=== PATIENT | female | born 1955 | race Caucasian/White ===

== ENCOUNTER 2016-07-31 08:46 | Emergency (ER) | payer MEDICAID ==
[~2016-07-31] VITALS: Ht 154.9 cm; Wt 44.9 kg
[~2016-07-31 08:46] MED LIST: ASPI81TA2 PO; ESTR0.623 PO; HYDR12.55 PO; HYDR25TA4 PO; LISI-600 PO; TYLENOL
[2016-07-31 08:50] VITALS: BP 140/86; PULSE 82; RESP 18; TEMP 97.1; O2SAT 100
[2016-07-31 09:35] VITALS: BP 140/86; PULSE 82; RESP 18; TEMP 97.1; O2SAT 100
== END 2016-07-31 09:35 | disposition home or self-care (01) ==
LOC: SED 08:46
DX: M75.32 Calcific tendinitis of left shoulder (principal); I10 Essential (primary) hypertension
CPT/HCPCS: 73030; 99284

== ENCOUNTER 2016-10-12 17:58 | Emergency (ER) | payer MEDICAID ==
[~2016-10-12] VITALS: Ht 154.9 cm; Wt 45.4 kg
[2016-10-12 17:58] VITALS: BP_SYST 129
[~2016-10-12 17:58] MED LIST changes: -HYDR25TA4 PO
--- NOTE | 2016-10-12 17:58 | NUR ---
Patient triaged and placed in waiting room. VSS and patient appears in no acute distress at this time. Accompanied by SELF, awaiting available bed, and MD notified of need for MSE.
--- NOTE | 2016-10-12 19:10 | NUR ---
Patient to ER chair 1 for evaluation.
--- NOTE | 2016-10-12 19:10 | NUR ---
Pt ambulatory, A/O X 4, c/o dry cough with chest congestion and nasal congestion with intermittent scratchy sore throat. Pt stated she has "sticky mucus" stuck in throat. Pt denied alleviating factors. Denied aggravating factors. Pt afebrile, no chills, denied headache, chest pain, dizziness, nausea, vomiting. Pt with no other remarkable symptoms. Pt with normal resp effort, no short of breath, lungs clear to auscultate.
--- NOTE | 2016-10-12 19:22 | NUR ---
ER JAMAL Lozoya at bedside examining patient.
[2016-10-12 19:47] VITALS: BP_SYST 125
--- NOTE | 2016-10-12 19:47 | NUR ---
Patient given written and verbal discharge instructions and verbalizes understanding. ER RECREATIONAL THERAPIST LETHA discussed with patient the results and treatment provided. Patient in stable condition. ID arm band removed. Rx of Tessalon Perles, Zyrtec, azithromycin and prednisone given. Patient educated on pain management and to follow up with PMD. Pain Scale 0/10. Opportunity for questions provided and answered.
== END 2016-10-12 19:47 | disposition home or self-care (01) ==
LOC: SED 17:58
DX: J20.9 Acute bronchitis, unspecified (principal); I10 Essential (primary) hypertension; Z90.49 Acquired absence of other specified parts of digestive tract
CPT/HCPCS: 99283

== ENCOUNTER 2017-01-12 19:40 | Emergency (ER) | payer MEDICAID ==
[~2017-01-12] VITALS: Ht 154.9 cm; Wt 45.4 kg
[2017-01-12 19:45] VITALS: BP_SYST 155
[2017-01-12 20:14] LABS: BILIRUBIN,URINE NEGATIVE (NEGATIVE); BLOOD, URINE 1+ (NEGATIVE); CLARITY/URINE SL HAZY (CLEAR); COLOR,URINE YELLOW (YELLOW); GLUCOSE,URINE NEGATIVE (NEGATIVE); KETONES,URINE NEGATIVE (NEGATIVE); LEUKOCYTE ESTERASE ,URINE NEGATIVE (NEGATIVE); NITRITE, URINE NEGATIVE (NEGATIVE); PH,URINE 7.5 (5.0-8.0); PROTEIN URINE NEGATIVE (NEGATIVE); UROBILINOGEN,URINE 0.2 (0.2-1.0)
[2017-01-12 20:29] LABS: BACTERIA,URINE FEW /HPF (None Seen); MUCUS,URINE 1+ /LPF (None Seen); WBC,URINE 0-3 /HPF (0-3)
[2017-01-12 20:42] VITALS: BP_SYST 155
== END 2017-01-12 20:42 | disposition home or self-care (01) ==
LOC: SED 19:40
DX: N39.0 Urinary tract infection, site not specified (principal); I10 Essential (primary) hypertension; Z79.84 Long term (current) use of oral hypoglycemic drugs; Z79.899 Other long term (current) drug therapy
CPT/HCPCS: 81000-TC; 99283; J7030

== ENCOUNTER 2017-01-12 22:49 | Emergency (ER) | payer MEDICAID ==
[~2017-01-12] VITALS: Ht 154.9 cm; Wt 45.4 kg
[2017-01-12 23:00] VITALS: BP_SYST 135
--- NOTE | 2017-01-12 23:10 | NUR ---
Patient to ER bed 6 to gown for evaluation. Side rails up. Report given to RICHARD PORTER.
--- NOTE | 2017-01-12 23:20 | NUR ---
Pt states after her first visit to the ER a few hours ago for UTI. Pt states that she was more nauseous and vomitted once. Pt denies any pain at this time. Will continue to monitor. No other injuries or complaints mentioned/noted. No distress noted.
[2017-01-12] MEDS ORDERED: cefTRIAXone 1 GM IVPB PREMIX 50 ML IV ONE (23:30)
[2017-01-12] MEDS ORDERED: ONDANSETRON HCL 4 MG/2 ML VIAL IVP ONE (23:30)
[2017-01-12] MEDS ORDERED: NACL 0.9% 1,000 ML IV ONE (23:30)
--- NOTE | 2017-01-12 23:30 | NUR ---
ER Dr. Jaquez at bedside examining patient.
--- NOTE | 2017-01-13 00:55 | NUR ---
Pt refused abx. Dr. Jaquez made aware.
--- NOTE | 2017-01-13 01:07 | NUR ---
Patient reports pain 0/10. No adverse reactions noted. Will continue to monitor.
[2017-01-13 01:13] VITALS: BP_SYST 135
--- NOTE | 2017-01-13 01:13 | NUR ---
Patient given written and verbal discharge instructions and verbalizes understanding. ER MD discussed with patient the results and treatment provided. Patient in stable condition. ID arm band removed. Patient educated on pain management and to follow up with PMD. Pain Scale 0/10. Opportunity for questions provided and answered.
== END 2017-01-13 01:13 | disposition home or self-care (01) ==
LOC: SED 22:49
DX: R11.2 Nausea with vomiting, unspecified (principal); R53.1 Weakness; I10 Essential (primary) hypertension; Z79.82 Long term (current) use of aspirin; Z79.899 Other long term (current) drug therapy
CPT/HCPCS: 96360; 96374; 99284; J0696; J2405; J7030; 96361

== ENCOUNTER 2017-01-16 16:13 | Emergency (ER) | payer MEDICAID ==
[~2017-01-16] VITALS: Ht 154.9 cm; Wt 45.4 kg
[~2017-01-16 16:13] MED LIST changes: -ESTR0.623 PO
[2017-01-16 16:26] VITALS: BP_SYST 128
[2017-01-16 21:45] LABS: BILIRUBIN,URINE NEGATIVE (NEGATIVE); BLOOD, URINE 2+ (NEGATIVE); CLARITY/URINE CLEAR (CLEAR); COLOR,URINE YELLOW (YELLOW); GLUCOSE,URINE NEGATIVE (NEGATIVE); KETONES,URINE 3+ (NEGATIVE); LEUKOCYTE ESTERASE ,URINE NEGATIVE (NEGATIVE); NITRITE, URINE NEGATIVE (NEGATIVE); PH,URINE 5.5 (5.0-8.0); PROTEIN URINE NEGATIVE (NEGATIVE); UROBILINOGEN,URINE 0.2 (0.2-1.0)
[2017-01-16 21:53] LABS: BASOPHILS % (AUTO) 0.2 % (0.0-2.0); HEMOGLOBIN 13.8 g/dL (12.0-16.0); LYMPHOCYTES # (AUTO) 0.8 K/uL (1.0-5.5); LYMPHOCYTES % (AUTO) 6.7 % (20.5-51.5); MEAN CORPUSCULAR HEMOGLOBIN 30 pg (27-31); MEAN CORPUSCULAR HGB CONC 35 % (32-36); MEAN CORPUSCULAR VOLUME 87 fL (79.0-98.0); MONOCYTES # (AUTO) 0.3 K/uL (0.0-1.0); MONOCYTES % (AUTO) 2.1 % (1.7-9.3); NEUTROPHILS # (AUTO) 10.9 K/uL (1.8-7.7); PLATELET COUNT (AUTO) 251 K/uL (130-430); RED CELL DISTRIBUTION WIDTH 11.8 % (9.0-15.0)
[2017-01-16 22:00] LABS: ANION GAP 12 (5-15); CALCIUM 9.5 mg/dL (8.4-11.0); CHLORIDE 102 mmol/L (98-107); CREATININE 0.79 mg/dL (0.55-1.30); GLUCOSE 115 mg/dL (70-99); POTASSIUM 3.2 mmol/L (3.5-5.1); SODIUM SERUM 138 mmol/L (136-145); UREA NITROGEN, BLOOD 13 mg/dL (8-21)
[2017-01-16 22:09] LABS: ALANINE AMINOTRANSFERASE 22 U/L (12-78); ALBUMIN 4.3 g/dL (3.4-4.8); ASPARTATE AMINOTRANSFERASE 17 U/L (10-37); TOTAL BILIRUBIN 0.6 mg/dL (0.0-1.0)
[2017-01-16 22:12] LABS: BACTERIA,URINE FEW /HPF (None Seen); MUCUS,URINE None Seen /LPF (None Seen); RBC,URINE 0-3 /HPF (0-3); WBC,URINE NONE SEEN /HPF (0-3)
[2017-01-16 22:13] LABS: GFR AFRICAN AMERICAN 96 mL/min (>90)
[2017-01-16] MEDS ORDERED: POTASSIUM CHLORIDE 10 MEQ TAB.PRT.SR PO ONE (22:30)
[2017-01-16 23:32] VITALS: BP_SYST 132
== END 2017-01-16 23:32 | disposition home or self-care (01) ==
LOC: SED 16:13
DX: H81.10 Benign paroxysmal vertigo, unspecified ear (principal); I10 Essential (primary) hypertension; E54 Ascorbic acid deficiency
CPT/HCPCS: 36415; 80053; 81000-TC; 84484; 85025; 93005; 99285

== ENCOUNTER 2017-02-13 16:41 | Emergency (ER) | payer MEDICAID ==
[~2017-02-13] VITALS: Ht 154.9 cm; Wt 45.4 kg
[2017-02-13 16:51] VITALS: BP_SYST 131
--- NOTE | 2017-02-13 17:05 | NUR ---
Pt placed to ER bed 02, to gown and cardiac monitor technician. Pt c/o dizziness off and on since 01/12/17 and states that this is her 3rd visit to ER. Pt states that she has been taking meclizine for Vertigo, but doesn't think it's working. Denies c/o N/V.
--- NOTE | 2017-02-13 17:20 | NUR ---
Dr. Lozoya at bedside to assess pt.
--- NOTE | 2017-02-13 17:25 | NUR ---
# 20 gauge angiocath placed to RAC. Use of asceptic technique. Opsite placed over site. Blood return noted. Blood for lab drawn from site. Flushed with 10 cc of normal saline. No evidence of infiltration noted. Patient tolerated well.
[2017-02-13] MEDS ORDERED: LORazepam 2 MG/ML VIAL IVP ONE (17:30)
[2017-02-13] MEDS ORDERED: ONDANSETRON HCL 4 MG/2 ML VIAL IVP ONE (17:30)
[2017-02-13] MEDS ORDERED: NACL 0.9% 1,000 ML IV ONE (17:30)
[2017-02-13] MEDS ORDERED: LORazepam 2 MG/ML VIAL (FOR ER USE) IVP ONE (17:45)
[2017-02-13 17:51] LABS: BASOPHILS % (AUTO) 0.5 % (0.0-2.0); EOSINOPHILS # (AUTO) 0.1 K/uL (0.0-0.4); EOSINOPHILS % (AUTO) 1.2 % (0.0-4.0); HEMATOCRIT 37.9 % (36-48); HEMOGLOBIN 12.9 g/dL (12.0-16.0); LYMPHOCYTES # (AUTO) 1.2 K/uL (1.0-5.5); LYMPHOCYTES % (AUTO) 20.7 % (20.5-51.5); MEAN CORPUSCULAR HEMOGLOBIN 30 pg (27-31); MEAN CORPUSCULAR HGB CONC 34 % (32-36); MEAN CORPUSCULAR VOLUME 89 fL (79.0-98.0); MONOCYTES # (AUTO) 0.4 K/uL (0.0-1.0); MONOCYTES % (AUTO) 7.5 % (1.7-9.3); NEUTROPHILS % (AUTO) 70.1 % (40.0-70.0); PLATELET COUNT (AUTO) 246 K/uL (130-430); RED BLOOD CELL COUNT(AUTO) 4.27 MIL/uL (4.2-6.2); RED CELL DISTRIBUTION WIDTH 11.6 % (9.0-15.0); WHITE BLOOD COUNT (AUTO) 5.7 K/uL (4.8-10.8)
[2017-02-13 18:05] LABS: CALCIUM 9.4 mg/dL (8.4-11.0); CREATININE 0.78 mg/dL (0.55-1.30); POTASSIUM 3.1 mmol/L (3.5-5.1)
[2017-02-13 18:17] LABS: THYROID STIMULATING HORMONE 1.21 uIu/mL (0.34-4.82); TOTAL BILIRUBIN 0.4 mg/dL (0.0-1.0); TOTAL PROTEIN, SERUM 7.5 g/dL (6.4-8.3)
[2017-02-13] MEDS ORDERED: POTASSIUM CHLORIDE 20 MEQ/PKT PACKET PO ONE (18:30)
--- NOTE | 2017-02-13 18:45 | NUR ---
Pt denies c/o pain or discomfort and no need verbalized at this time.
--- NOTE | 2017-02-13 19:05 | NUR ---
Pt report given to RICHARD Maddox.
[2017-02-13 21:30] VITALS: BP_SYST 109
== END 2017-02-13 21:30 | disposition home or self-care (01) ==
LOC: SED 16:41
DX: E86.0 Dehydration (principal); R53.1 Weakness; R42 Dizziness and giddiness; I10 Essential (primary) hypertension; Z79.82 Long term (current) use of aspirin; Z79.899 Other long term (current) drug therapy
CPT/HCPCS: 36415; 80053; 84443; 85025; 93005; 96361; 96374; 96375; 99285; J2060; J2405; J7030

== ENCOUNTER 2018-02-04 11:15 | Emergency (ER) | payer MEDICAID ==
[~2018-02-04] VITALS: Ht 154.9 cm; Wt 43.1 kg
[~2018-02-04 11:15] MED LIST changes: +ASPI-1155 PO; -ASPI81TA2 PO
[2018-02-04 11:22] VITALS: BP_SYST 112
--- NOTE | 2018-02-04 11:22 | NUR ---
Patient to ER bed 3 to gown for evaluation. Side rails up.
--- NOTE | 2018-02-04 11:25 | NUR ---
Pt presents to ER c/o skin rash that has exacerbated and spread throughout her body. Pt states that rash began approx three months ago and has worsened over time. Pt states that she has seen her PMD as well as a [employer] for the symptoms. Pt denies any pain, denies chest pain or sob, denies nausea or vomiting. Pt in no acute respiratory distress, speaking full sentences, AOX4, ambulatory, brought in by .
--- NOTE | 2018-02-04 11:32 | NUR ---
ER Dr. Carty at bedside examining patient.
[2018-02-04] MEDS ORDERED: NS 500 ML IV ONE (11:45)
[2018-02-04] MEDS ORDERED: methylPREDNISolone SOD SUCC/PF 62.5 MG/ML VIAL IVP ONE (11:45)
[2018-02-04] MEDS ORDERED: DIPHENHYDRAMINE INJ 50 MG/ML VIAL IVP ONE (11:45)
[2018-02-04] MEDS ORDERED: ALBUTEROL SULFATE 0.083% 2.5 MG/3 ML VIAL.NEB IH ONE (11:45)
[2018-02-04] MEDS ORDERED: IPRATROPIUM BROM 0.5 MG/2.5 ML VIAL.NEB (ATROVENT) IH ONE (11:45)
--- NOTE | 2018-02-04 12:04 | NUR ---
Respiratory at bedside.
[2018-02-04 12:45] VITALS: BP_SYST 114
--- NOTE | 2018-02-04 12:45 | NUR ---
Patient given written and verbal discharge instructions and verbalizes understanding. ER MD discussed with patient the results and treatment provided. Patient in stable condition. ID arm band removed. IV catheter removed intact and dressing applied, no active bleeding. Rx of Atarax, Tramcinolone Acetonide, Prednisone given. Patient educated on pain management and to follow up with PMD. Pain Scale 0. Opportunity for questions provided and answered. Medication side effect fact sheet provided.
== END 2018-02-04 12:45 | disposition home or self-care (01) ==
LOC: SED 11:15
DX: L20.9 Atopic dermatitis, unspecified (principal); I10 Essential (primary) hypertension; Z90.89 Acquired absence of other organs; Z90.710 Acquired absence of both cervix and uterus; Z79.82 Long term (current) use of aspirin; Z79.899 Other long term (current) drug therapy
CPT/HCPCS: 94640; 96374; 96375; 99284; J1200; J2930; J7030; J7613

== ENCOUNTER 2020-08-31 02:06 | Inpatient (IN) | payer MEDICAID, SELFPAY ==
[~2020-08-31] VITALS: Ht 154.9 cm; Wt 43.5 kg
[2020-08-31 02:50] VITALS: BP_SYST 150
--- NOTE | 2020-08-31 02:50 | NUR ---
PATIENT AMBULATORY TO BED 6 FOR EVALUATION
--- NOTE | 2020-08-31 02:51 | NUR ---
ER at bedside examining patient.
[2020-08-31 03:09] LABS: BILIRUBIN,URINE NEGATIVE (NEGATIVE); CLARITY/URINE CLEAR (CLEAR); COLOR,URINE YELLOW (YELLOW); GLUCOSE,URINE NEGATIVE (NEGATIVE); KETONES,URINE NEGATIVE (NEGATIVE); LEUKOCYTE ESTERASE ,URINE NEGATIVE (NEGATIVE); NITRITE, URINE NEGATIVE (NEGATIVE); PH,URINE 6.5 (5.0-8.0); PROTEIN URINE NEGATIVE (NEGATIVE); UROBILINOGEN,URINE 0.2 (0.2-1.0)
[2020-08-31 03:12] LABS: BLOOD, URINE TRACE (NEGATIVE)
[2020-08-31 03:23] LABS: BACTERIA,URINE FEW /HPF (None Seen); WBC,URINE 0-3 /HPF (0-3)
--- NOTE | 2020-08-31 03:35 | NUR ---
PT AWAKE, ALERT, ORIENTED X4. IN NO APPARENT. DENIES PAIN. STATES SHE FEELS SOME KIND OF PALPITATION IN HER CHEST. ADMITS TO HAVING ASPLEENIC ANEURYSM 4 YEARS AGO AND WAS HAVING IT MONITORED YEARLY. SHE MISSED LAST YEAR, FELT SOME PULSATION, GOT SCARED, SO SHE WENT TO THE HOSPITAL TO BE CHECKED.
[2020-08-31 04:16] LABS: BASOPHILS # (AUTO) 0.1 K/uL (0.0-0.2); EOSINOPHILS # (AUTO) 0.2 K/uL (0.0-0.4); EOSINOPHILS % (AUTO) 3.7 % (0.0-4.0); HEMATOCRIT 39.7 % (36-48); HEMOGLOBIN 13.7 g/dL (12.0-16.0); LYMPHOCYTES # (AUTO) 1.7 K/uL (1.0-5.5); MEAN CORPUSCULAR HEMOGLOBIN 30 pg (27-31); MEAN CORPUSCULAR HGB CONC 34 % (32-36); MEAN CORPUSCULAR VOLUME 88 fL (79.0-98.0); MONOCYTES # (AUTO) 0.7 K/uL (0.0-1.0); MONOCYTES % (AUTO) 11.4 % (1.7-9.3); NEUTROPHILS # (AUTO) 3.4 K/uL (1.8-7.7); NEUTROPHILS % (AUTO) 55.9 % (40.0-70.0); PLATELET COUNT (AUTO) 240 K/uL (130-430); RED BLOOD CELL COUNT(AUTO) 4.53 MIL/uL (4.2-6.2); WHITE BLOOD COUNT (AUTO) 6.1 K/uL (4.8-10.8)
[2020-08-31 04:18] LABS: CALCIUM 8.7 mg/dL (8.4-11.0); CREATININE 0.67 mg/dL (0.55-1.30); POTASSIUM 3.4 mmol/L (3.5-5.1)
[2020-08-31 04:24] LABS: TOTAL BILIRUBIN 0.3 mg/dL (0.0-1.0)
[2020-08-31 04:35] LABS: INR 0.9 (0.8-1.2); PROTHROMBIN TIME 9.3 SECS (9.5-12.5)
[2020-08-31] MEDS ORDERED: LORazepam 2 MG/ML VIAL IVP PRN (05:00)
[2020-08-31] MEDS ORDERED: cefTRIAXone 1 GM IVPB PREMIX 50 ML IV SCH (05:00)
[2020-08-31] MEDS ORDERED: MORPHINE 2 MG/ML INJ. SYRINGE IVP PRN (05:00)
[2020-08-31] MEDS ORDERED: ACETAMINOPHEN 325 MG TABLET PO PRN (05:00)
[2020-08-31] MEDS ORDERED: HYDROcodone/ACETAMIN 5-325 MG TAB (NORCO/ VICODIN) PO PRN (05:00)
--- NOTE | 2020-08-31 05:13 | NUR ---
TO BE ADMITTED UNDER DR MASSEY.
[2020-08-31] MEDS ORDERED: POTASSIUM CHLORIDE 20 MEQ TAB.PRT.SR PO ONE (05:15)
[2020-08-31] MEDS ORDERED: FAMOTIDINE PF 20 MG/2 ML VIAL IVP SCH (05:30)
[2020-08-31] MEDS ORDERED: NOR10 PO (05:51)
[2020-08-31] MEDS ORDERED: EST1 PO (05:51)
--- NOTE | 2020-08-31 06:37 | NUR ---
Patient given written and verbal discharge instructions and verbalizes understanding. ER DR LOVE CALLAHAN discussed with patient the results and treatment provided. Patient in stable condition. ID arm band removed. Patient educated on pain management and to follow up with PMD. Pain Scale . Opportunity for questions provided and answered. Medication side effect fact sheet provided.
--- NOTE | 2020-08-31 07:05 | NUR ---
REPORT RECEIVED FROM RICHARD BOYER FOR CONTINUING CARE
--- NOTE | 2020-08-31 07:36 | NUR ---
ADMISSION NOTE Received patient from ER via karissa, received report from ELIZABETH RAMOS. Patient admitted with diagnosis of SYPMTOMATIC SPLENIC ARTERY ANEURYSM. Patient oriented to hospital routine, call light, toileting and safety-patient verbalized understanding.
[2020-08-31 07:54] VITALS: BP_SYST 143
--- NOTE | 2020-08-31 07:57 | NUR ---
CONSULTATION PAGED/CALLED Reason for Consultation: [] SPLENIC ARTERIAL ANEURYSM Person Who was Notified: [] DR GUY Consulting Physician: [] DR GUY [employer] Guid[employer] Counselor Specialty: [] VASCULAR SURGEON Ordering Physician: [] SASHA WIGGINS
--- NOTE | 2020-08-31 08:51 | NUR ---
DR. BROOSK GUY CALLED FOR CONSULTATION OF PT. STATED HE WILL BE HERE TO ASSESS PT. HE ALSO STATED TO GIVE PT AM MEDS FOR BP
[2020-08-31] MEDS ORDERED: lisinopriL 20 MG TABLET PO SCH (09:00)
[2020-08-31] MEDS ORDERED: ENOXAPARIN SODIUM 30 MG/0.3 ML SYRINGE SUBCUT SCH (09:00)
[2020-08-31] MEDS ORDERED: ESTRADIOL 1 MG TABLET (ESTRACE) PO SCH (09:00)
[2020-08-31] MEDS ORDERED: ASPIRIN 81 MG TAB.CHEW PO SCH (09:00)
[2020-08-31] MEDS ORDERED: HYDROCHLOROTHIAZIDE 25 MG TABLET (HCTZ) PO SCH (09:00)
[2020-08-31] MEDS ORDERED: METOPROLOL TARTRATE 25 MG TABLET PO SCH (09:00)
--- NOTE | 2020-08-31 09:15 | NUR ---
OPENING PT IS A&O X 4. PT IS SITTING UP IN BED AT THIS TIME. PT STATES THAT SHE KNOWS SHE HAS AN ANEURYSM THAT IS 1.5 CM CALCIFIFCATION. PT STATES THAT SHE HAS HAD THIS PROBLEM IN THE PAST HOWEVER HAS NOT HAD A FOLLOW UP APPT IN AWHILE OVER A YEAR NOW. PT STATES THAT SHE HAS NOT HAD ANY SLEEP THROUGHOUT THE NIGHT AND IS VERY TIRED AT THIS TIME. PT GIVEN EMOTIONAL SUPPORT. VSS. MEDICATIONS GIVEN ORDERED. PT IS IN PLEASANT MOOD AND STATES SHE HAS NO PAIN AT THIS TIME. PT HAS NO S/S OF ACUTE DISTRESS NOTED.
[2020-08-31 09:17] VITALS: BP_SYST 143
--- NOTE | 2020-08-31 11:20 | NUR ---
Dr. Julia Dumont here at this time. Stated that pt aneurysm is stable and is ok to discharge will need to follow up with him or with her pcp for care
[2020-08-31 12:23] VITALS: BP_SYST 143
--- NOTE | 2020-08-31 12:31 | NUR ---
Discharge Verbal and written discharge instructions given to pt. Pt verbalized understanding. All needs met. Iv removed. Pt tolerated well.
== END 2020-08-31 12:31 | disposition home or self-care (01) | DRG 197 ==
LOC: SED 02:06 → STU 04:51
PROVIDERS: ADMIT Hospitalist; ATTEND Hospitalist
DX: I72.8 Aneurysm of other specified arteries (principal); E87.6 Hypokalemia; N39.0 Urinary tract infection, site not specified; I70.208 Unspecified atherosclerosis of native arteries of extremities, other extremity; R31.9 Hematuria, unspecified; I10 Essential (primary) hypertension; Z20.822 Contact with and (suspected) exposure to COVID-19; Z79.82 Long term (current) use of aspirin; Z79.899 Other long term (current) drug therapy; Z90.49 Acquired absence of other specified parts of digestive tract; Z68.1 Body mass index [BMI] 19.9 or less, adult
CPT/HCPCS: 36415; 71045; 76376; 80053; 81000-TC; 82550-TC; 83880; 84484; 85025; 85379; 85384-TC; 85610-TC; 87086; 99291; G0378; J0696

== ENCOUNTER 2023-11-21 20:12 | Emergency (ER) | payer BC, MEDICAID ==
[~2023-11-21] VITALS: Ht 154.9 cm; Wt 47.6 kg
[~2023-11-21 20:12] MED LIST changes: +EST1 PO; -HYDR12.55 PO; -LISI-600 PO; +NOR10 PO; -TYLENOL
[2023-11-21 20:46] VITALS: BP_SYST 143; PULSE 89; RESP 18; TEMP 97.6; O2SAT 99
[2023-11-21] MEDS: predniSONE 20 MG TABLET PO ONE (21:18)
[2023-11-21] MEDS: DIPHENHYDRAMINE HCL 25 MG CAPSULE PO ONE (21:19)
[2023-11-21] MEDS: FAMOTIDINE 20 MG TABLET PO ONE (21:20)
[2023-11-21] MEDS ORDERED: PRED20TA PO (21:28)
[2023-11-21] MEDS ORDERED: DIPH25CA83 PO (21:28)
[2023-11-21] MEDS ORDERED: FAMO-132 PO (21:28)
[2023-11-21 21:47] VITALS: BP_SYST 143; PULSE 89; RESP 18; TEMP 97.6; O2SAT 99
== END 2023-11-21 21:47 | disposition home or self-care (01) ==
LOC: SED 20:12
DX: T78.49XA Other allergy, initial encounter (principal); L30.9 Dermatitis, unspecified; I10 Essential (primary) hypertension; Z79.899 Other long term (current) drug therapy; Z79.2 Long term (current) use of antibiotics; X58.XXXA Exposure to other specified factors, initial encounter
CPT/HCPCS: 99284; Q0163; J7512